=== PATIENT | female | born 1990 | race Caucasian/White ===

== ENCOUNTER 2018-03-14 12:45 | Inpatient (IN) ==
[2018-03-14] MEDS ORDERED: SODIUM CHLORIDE 0.9% 1,000 ML IV STA (13:29)
[2018-03-14] MEDS ORDERED: KETOROLAC 30 MG/1 ML VIAL IV STA (13:29)
[2018-03-14 13:50] LABS: Apearance,Urine CLEAR (Clear); Bilirubin,Urine Negative (Negative); Blood, Urine Negative (Negative); Glucose,Urine (UA) Negative (Negative); Ketones,Urine 5 mg/dL (Negative); Nitrite,Urine Negative (Negative); Protein,Urine Negative; RBC,Urine 1 /HPF (0-4); Squamous Epithelial Cell,Urine Occasional /HPF (0-10); Urine Color Straw (Yellow); Urine Specific Gravity 1.004 (1.001-1.035); Urine Urobilinogen < 2.0 EU/DL (0.2-1.0); WBC,Urine <1 /HPF (0-6)
[2018-03-14] MEDS ORDERED: HYDROmorphone 2 MG/1 ML VIAL IV STA (14:22)
[2018-03-14] MEDS ORDERED: ONDANSETRON 4 MG/2 ML VIAL IV STA (14:22)
[2018-03-14 14:40] LABS: Basophils % 0.4 % (0.0-0.8); Eosinophils # 0.1 10*3/uL (0.0-0.87); Eosinophils % 1.3 % (0.00-10.9); Immature Granulocytes % 0.3 %; Immature Granulocytes Absolute 0.03 #; Lymphocytes % 36.9 % (21.3-54.2); Mean Corpuscular HGB Conc 32.6 GM/DL (32-36); Mean Corpuscular Hemoglobin 28 PG (27-34); Mean Corpuscular Volume 86.6 FL (87-102); Monocytes # 0.8 10*3/uL (0.11-0.8); Monocytes % 7.4 % (1.7-12.7); Neutrophils # 5.8 10*3/uL (1.4-7.4); Neutrophils % 53.7 % (38.7-73.9); Platelet Count 344 T/CUMM (130-400); Red Blood Count 5.31 MC/CUMM (3.8-5.5); Red Cell Distribution Width 13.6 % (9.3-17.3); White Blood Count 10.8 T/CUMM (4-12)
[2018-03-14 17:36] LABS: Albumin 3.8 G/DL (3.4-5.0); Bilirubin,Total 0.4 MG/DL (0.2-1.0); Calcium 9.5 MG/DL (8.5-10.1); Osmolality,Calculated 274.4 MOS/KG (273-304); Potassium 3.8 MMOL/L (3.5-5.1); Total Protein 8.2 G/DL (6.4-8.3)
[2018-03-14] MEDS ORDERED: ACETAMINOPHEN 325 MG TABLET PO PRN (18:16)
[2018-03-14] MEDS: LACTATED RINGERS 1,000 ML IV SCH (18:33)
[2018-03-14] MEDS: HYDROmorphone 2 MG/1 ML VIAL IV PRN (20:31)
[2018-03-14] MEDS: cefOXitin 2,000 MG in SYRINGE 1 EACH IV SCH (20:34)
[2018-03-15] MEDS: ONDANSETRON 4 MG/2 ML VIAL IV PRN ×2 (00:37→06:44)
[2018-03-15] MEDS: HYDROmorphone 2 MG/1 ML VIAL IV PRN ×2 (00:41→06:51)
[2018-03-15] MEDS: cefOXitin 2,000 MG in SYRINGE 1 EACH IV SCH ×2 (02:25→09:47)
[2018-03-15] MEDS: LACTATED RINGERS 1,000 ML IV SCH (02:38)
[2018-03-15] MEDS ORDERED: PANTOPRAZOLE 40 MG TABLET PO SCH (09:00)
[2018-03-15 11:14] VITALS: BP 108/73
== END 2018-03-15 11:00 | disposition left against medical advice (07) | DRG 251 ==
LOC: N.ED 12:45 → N.EDINP 15:34 → N.2E 17:03
PROVIDERS: ADMIT Surgery; ATTEND Surgery